=== PATIENT | male | born 1965 | race African-American/Black ===

== ENCOUNTER 2018-07-23 09:49 | Emergency (ER) | payer MEDICAID ==
[~2018-07-23] VITALS: Ht 185.4 cm; Wt 73.0 kg
[2018-07-23] MEDS ORDERED: KETOROLAC 30MG/ML VIAL IM ONE (11:30)
[2018-07-23] MEDS ORDERED: CYCLOBENZAPRINE 10MG TABLET PO ONE (11:30)
[2018-07-23 11:50] VITALS: BP 115/72
== END 2018-07-23 11:53 | disposition home or self-care (01) ==
LOC: ER 09:49
DX: S00.83XA Contusion of other part of head, initial encounter (principal); S29.012A Strain of muscle and tendon of back wall of thorax, initial encounter; M79.662 Pain in left lower leg; Z98.890 Other specified postprocedural states; Z87.828 Personal history of other (healed) physical injury and trauma; Y04.0XXA Assault by unarmed brawl or fight, initial encounter; Y93.89 Activity, other specified; Y92.89 Other specified places as the place of occurrence of the external cause
CPT/HCPCS: 96372; 99283; J1885

== ENCOUNTER 2021-01-12 09:08 | Emergency (ER) | payer MEDICAID ==
[~2021-01-12] VITALS: Ht 185.4 cm; Wt 90.0 kg
[2021-01-12] MEDS ORDERED: CYCLOBENZAPRINE 10MG TABLET PO ONE (09:30)
[2021-01-12] MEDS ORDERED: KETOROLAC 60MG/2ML VIAL IM ONE (09:30)
[2021-01-12 10:16] LABS: CHLORIDE 105 mEq/L (98-107)
[2021-01-12] MEDS ORDERED: NAPR-681 MT (11:12)
[2021-01-12 11:36] VITALS: BP 128/70
== END 2021-01-12 11:37 | disposition home or self-care (01) ==
LOC: ER 09:08
DX: M72.2 Plantar fascial fibromatosis (principal); Z98.890 Other specified postprocedural states
CPT/HCPCS: 36415; 80048; 96372; 99283; J1885